=== PATIENT | female | born 1975 | race African-American/Black ===

== ENCOUNTER 2019-03-08 09:56 | Outpatient (CLI) | payer OTHER ==
--- NOTE | 2019-03-08 15:08 | Mammography Report ---
Reason: ANNUAL SCREENING Procedure Date: 03/08/2019 Accession Number: [id number] / [id number] Procedure: MARY - Screening Mammo Dig Bilat CPT Code: Final Report FULL RESULT: EXAM: Screening Mammo Dig Bilat DATE: 03/08/2019 10:58 AM CLINICAL HISTORY: Routine screening TECHNIQUE: (B) - Bilateral CC and MLO views were obtained. COMPARISON: 08/22/2016, 07/21/2010 PARENCHYMAL PATTERN: (D) - The breasts demonstrate heterogeneously dense fibroglandular parenchyma bilaterally. FINDINGS: No significant interval change on the right.. There are no suspicious masses, calcifications, or areas of distortion. On the left questionable area of architectural distortion in the retroareolar breast middle third best seen on the CC projection. No suspicious microcalcifications or skin thickening on the left. IMPRESSION: Incomplete examination. BI-RADS category 0. Needs additional evaluation left breast by spot compression and true lateral views. Negative right breast. RECOMMENDATION: (ADDMAM) - Recommend additional mammographic views. Left breast BI-RADS CATEGORY: (0) - Incomplete Examination - need additional evaluation. STANDARD QUALIFYING STATEMENTS: 1. This examination was not reviewed with the aid of Computer-Aided Detection (CAD). 2. A negative or benign imaging report should not preclude biopsy if clinically suspicious findings are present. 3. Dense breasts may obscure an underlying neoplasm. 4. This examination was reviewed without the aid of 3D breast imaging (tomosynthesis).
== END 2019-03-08 09:57 | disposition home or self-care (01) ==
LOC: DI 09:56
DX: Z12.31 Encounter for screening mammogram for malignant neoplasm of breast (principal); R92.8 Other abnormal and inconclusive findings on diagnostic imaging of breast
CPT/HCPCS: 77067

== ENCOUNTER 2019-06-10 10:14 | Outpatient (CLI) | payer OTHER ==
--- NOTE | 2019-06-10 11:53 | Mammography Report ---
Reason: ABN MAMMO - LT SPEC VIEWS Procedure Date: 06/10/2019 Accession Number: [id number] / [id number] Procedure: MARY - Diag Special Views Dig LT CPT Code: Final Report FULL RESULT: EXAM: Diag Special Views Dig LT, Breast Unilateral Limited DATE: 06/10/2019 10:56 AM CLINICAL HISTORY: Follow-up abnormal mammogram 03/08/2019. COMPARISON: 03/08/2019, 08/22/2016. MAMMOGRAM: TECHNIQUE: (L) - Left. CC and MLO views were obtained. PARENCHYMAL PATTERN: FINDINGS: The area of possible architectural distortion in the retroareolar breast middle third dissipates almost entirely on additional views. LEFT BREAST ULTRASOUND: TECHNIQUE: Real time scanning by the fixed income analyst with saved static images reviewed. FINDINGS: In the left breast 11 to 12:00 position 5 cm from the nipple there is a 0.8 x 0.5 x 0.6 cm simple cyst. From 12-3 o'clock no cystic or solid mass, abnormal fluid collection, or other abnormality is seen. IMPRESSION: Probably Benign. BI-RADS category 3. RECOMMENDATION: (6MOS) - Recommend 6 month follow-up exam. Left breast mammogram in 6 months. BI-RADS CATEGORY: (3) - Probably Benign. STANDARD QUALIFYING STATEMENTS: 1. This examination was not reviewed with the aid of Computer-Aided Detection (CAD). 2. A negative or benign imaging report should not preclude biopsy if clinically suspicious findings are present. 3. Dense breasts may obscure an underlying neoplasm. 4. This examination was reviewed without the aid of 3D breast imaging (tomosynthesis).
== END 2019-06-10 10:15 | disposition home or self-care (01) ==
LOC: DI 10:14
PROVIDERS: ATTEND Registered Nurse Diabetes Educator
DX: R92.2 Inconclusive mammogram (principal)
CPT/HCPCS: 76642

== ENCOUNTER 2020-03-11 09:42 | Outpatient (CLI) | payer OTHER ==
--- NOTE | 2020-03-12 14:42 | Mammography Report ---
BILATERAL DIGITAL DIAGNOSTIC MAMMOGRAM 3D/2D: 03/11/2020 CLINICAL: Patient returns today to evaluate an architectural distortion in the left breast. 6 month f ollow up. Comparison is made to exams dated: 06/10/2019 mammogram, 06/10/2019 ultrasound, 03/08/2019 mammogram, and 08/22/2016 mammogram - [facility]. The tissue of both breasts is heterogeneously d ense. This may lower the sensitivity of mammography. There is a stable irregular asymmetry in the left breast central to the nipple anterior depth. No abn ormality seen on prior ultrasound. No other significant masses, calcifications, or other findings are seen in either breast. IMPRESSION: PROBABLY BENIGN Stable irregular asymmetry in the left breast resembles fibroglandular tissue and is probably benign. A follow-up left mammogram in 12 months is recommended to demonstrate 2 years stability. Patient will be due for right breast mammogram at that time. Exam findings were conveyed to the patient. This exam was interpreted at Station ID: [id number]. NOTE: For mammograms, a report in lay terms will be sent to the patient. Approximately 15% of breast malignancies will not be visualized mammographically. In the management of a palpable breast mass, a negative mammogram must not discourage biopsy of a clinically suspicious lesion. Electronically Signed By: Thee Awad M.D. slc/:03/11/2020 11:52:19 ACR BI-RADS Category 3: Probably benign [id number] PARENCHYMAL PATTERN: (D) - The breast(s) demonstrate(s) heterogeneously dense fibroglandular antoinette ponce. BI-RADS CATEGORY: (3) - 3 Mammogram [id number] 12 month follow-up LATERALITY: (L)
== END 2020-03-11 09:43 | disposition home or self-care (01) ==
LOC: DI 09:42
PROVIDERS: ATTEND Family Medicine
DX: N64.89 Other specified disorders of breast (principal)
CPT/HCPCS: 77066